=== PATIENT | male | born 1955 | race Caucasian/White ===

== ENCOUNTER → 2021-06-07 | Outpatient (CLI) | payer MEDICARE, OTHER ==
[~2021-06-07] MED LIST: ABILIFY 2 MG TAB2 MG PO; ALL DAY ALLERGY10 M3 PO; ASPIRIN 325MG325 MG PO; ASPIRIN EC81 MG PO; COZAAR100 MG PO; DEPAKOTE ER500 MG PO; GLUCOPHAGE1000 MG PO; HABITROL 21 MG P1 EA TD; LEVAQUIN TAB 5500 MG PO; MOBIC7.5 MG PO; NITROSTAT 0.40.4 MG SL; OCEAN37.5 ML; PLAVIX 75 MG TA75 MG PO; SINGULAIR10 MG PO; THEO-24300 MG PO; TRAZODONE HCL150 MG PO; TYLENOL 325MG325 MG PO; VITAMIN B-12100 MC1 PO; ZANTAC150 MG PO; ZOCOR40 MG PO; ZOLOFT50 MG PO
== END ==
LOC: RAD 04-12 08:30 → EDBD 08:16 → RAD 08:30
DX: R13.10 Dysphagia, unspecified (principal)
CPT/HCPCS: 74230; 92611-GN

== ENCOUNTER 2021-08-26 09:15 | Emergency (ER) | payer MEDICARE, OTHER ==
[2021-08-26 11:23] LABS: HEMOGLOBIN 12.3 gm/dl (14.0-17.5); RED BLOOD COUNT 4.29 M/UL (4.20-5.50)
[2021-08-26 12:26] LABS: BUN/CREATININE RATIO 23 (0-10)
[2021-08-26] MEDS ORDERED: VIBRAMYCIN 100100 MG PO (13:47)
[2021-08-26] MEDS ORDERED: BENZONATATE200 MG PO (13:47)
== END 2021-08-26 13:58 | disposition home or self-care (01) ==
LOC: ER1 09:15
PROVIDERS: Physician Assistant
DX: J18.9 Pneumonia, unspecified organism (principal); E78.5 Hyperlipidemia, unspecified; E11.9 Type 2 diabetes mellitus without complications; I10 Essential (primary) hypertension; F17.200 Nicotine dependence, unspecified, uncomplicated; Z86.73 Personal history of transient ischemic attack (TIA), and cerebral infarction without residual deficits
CPT/HCPCS: 71045; 80053; 81001; 82550; 82553; 84484; 85025; 87081; 87880; 93005; 99284

== ENCOUNTER 2021-10-21 19:02 | Emergency (ER) | payer MEDICARE, OTHER ==
[~2021-10-21 19:02] MED LIST changes: +BENZONATATE200 MG PO; +VIBRAMYCIN 100100 MG PO
== END 2021-10-21 20:40 | disposition home or self-care (01) ==
LOC: ER1 19:02
DX: S00.03XA Contusion of scalp, initial encounter (principal); I10 Essential (primary) hypertension; Z86.73 Personal history of transient ischemic attack (TIA), and cerebral infarction without residual deficits; W22.8XXA Striking against or struck by other objects, initial encounter; Y92.009 Unspecified place in unspecified non-institutional (private) residence as the place of occurrence of the external cause
CPT/HCPCS: 99283

== ENCOUNTER 2021-12-26 17:18 | Emergency (ER) | payer MEDICARE, OTHER ==
[2021-12-26 18:37] LABS: RED BLOOD COUNT 4.1 M/UL (4.20-5.50); WHITE BLOOD COUNT 8.6 K/UL (4.5-11.0)
[2021-12-26 18:59] LABS: BUN/CREATININE RATIO 22 (0-10)
== END 2021-12-26 21:55 | disposition home or self-care (01) ==
LOC: ER1 17:18
PROVIDERS: Family Medicine
DX: R30.0 Dysuria (principal)
CPT/HCPCS: 80053; 81001; 85025; 87086; 99283